=== PATIENT | female | born 1940 | race Caucasian/White ===

== ENCOUNTER 2023-04-16 15:45 | Emergency (ER) | payer MEDICARE, SELFPAY ==
--- NOTE | ~2023-04-16 | XR_ITS ---
XR chest 2V DATE: 04/16/2023 16:33 INDICATION: Wheezing and productive cough for a long time. Past smoker. TECHNIQUE: 2 views COMPARISON: 10/03/2015 2 view chest FINDINGS: Bilateral hyperinflation. No pulmonary infiltrate or consolidation, pleural effusion or pul monary vascular congestion or pneumothorax is detected. Normal heart size. No hilar or mediastinal enlargement. Diffuse osteopenia. IMPRESSION: Bilateral hyperinflation; no active cardiopulmonary disease Reviewed, dictated and finalized at location B. [employer] MA[employer]GER
[2023-04-16 16:01] VITALS: BP 103/69; PULSE 96; RESP 16; TEMP 36.6; O2SAT 99
--- NOTE | 2023-04-16 16:09 | ED.WOUNDLAC ---
HPI - Wound/Laceration General Chief Complaint: Wound/Laceration Stated Complaint: dog scratch Source: patient, RN notes reviewed and old records reviewed Mode of arrival: ambulatory Limitations: no limitations History of Present Illness HPI narrative: 82-year-old female presents to [facility] with complaints of scratches to right arm from her grandson's [place] [employer] that occurred today. Patient states was worried because area bled quite a bit after injury. Patient states also needs to have her tetanus updated. Patient also complaining of cough for the last several days that is now productive with yellow sputum and wheezing that started this a.m.. Patient states does have a history of asthma and has been having trouble getting her Flovent inhaler due to insurance. patient states does not currently have an albuterol inhaler Related Data Home Medications Medication Instructions Recorded Confirmed calcium carbonate 600 mg calcium 600 mg PO DAILY 08/27/22 04/16/23 (1,500 mg) tablet (Calcium) cholecalciferol (vitamin D3) 25 25 mcg PO DAILY 08/27/22 04/16/23 mcg (1,000 unit) capsule fluticasone propionate 110 1 puff inhalation Q12H 08/27/22 04/16/23 mcg/actuation HFA aerosol inhaler (Flovent HFA) lisinopril 2.5 mg tablet 2.5 mg PO DAILY 08/27/22 04/16/23 mv-mn-folic 200 mcg-vit K 15 1 cap PO DAILY 08/27/22 04/16/23 mcg-lutein 5 mg-zeaxanthin 1 mg capsule (PreserVision AREDS 2 Plus Multivit) rosuvastatin 5 mg tablet 5 mg PO DAILY 08/27/22 04/16/23 sertraline 100 mg tablet 100 mg PO DAILY 08/27/22 04/16/23 clonazepam 0.5 mg tablet See Rx Instructions .Route .COMPLEX 04/16/23 04/16/23 Allergies Allergy/AdvReac Type Severity Reaction Status Date / Time Sulfa (Sulfonamide Allergy Mild KIDNEY Verified 04/16/23 15:59 Antibiotics) PROBLEM amoxicillin Allergy Unknown Unknown Verified 04/16/23 15:59 clavulanic acid Allergy Unknown Unknown Verified 04/16/23 15:59 clindamycin AdvReac Unknown DECREASED Verified 04/16/23 15:59 APPETITE Review of Systems Constitutional: Constitutional: Reports no additional constitutional complaints, Denies body ache(s), Denies chills, Denies fatigue, Denies fever(s) and Denies headache(s) Eyes: Eyes: Reports no additional eye complaints and Denies blurry vision ENT: Reports system reviewed and no additional complaints, except as documented, Denies vertigo, Denies dizziness, Denies ear discharge, Denies otalgia, Denies facial pain, Denies headache(s), Denies nasal congestion, Denies nasal discharge, Denies sinus pain, Denies sinus pressure and Denies sore throat Cardiovascular: Cardiovascular: Reports no additional cardiovascular complaints, Denies chest pain, Denies chest pain at rest, Denies rapid heart rate and Denies dyspnea Respiratory: Respiratory: Reports no additional respiratory complaints, Reports chest congestion, Reports cough, Reports excessive phlegm production, Denies pain on inspiration, Denies pain with cough, Denies dyspnea and Reports wheezing Gastrointestinal: Gastrointestinal: Denies abdominal pain, Denies diarrhea, Denies nausea and Denies vomiting Integumentary/Breasts: Skin/Breast: Denies rash Neurologic: Reports system reviewed and no additional complaints, except as documented, Denies vertigo, Denies dizziness and Denies headache(s) Endocrine: Endocrine: Denies fatigue PMFSH Family History Family History Father Hypertension Cerebrovascular accident Mother Carcinoma of colon Hypertension Sibling Asthma Cancer Hypertension Depression Heart disease Other Asthma Hypertension Social History Social History Smoking status: Never smoker Alcohol intake: never Lack of Transportation: No Lack of Food: Never True Current Housing: I Have Housing Concerned About Future Housing: No Difficulty Paying Gas/Electric Bill
[2023-04-16] MEDS: ALBUTEROL SULFATE NEB 2.5 MG/3 ML INH INHALATION (16:37)
[2023-04-16] MEDS: TETANUS,DIPHTHERIA,AC PERTUSSIS ADULT (0.5 ML) BOOSTRIX IM (16:40)
== END 2023-04-16 17:19 | disposition home or self-care (01) ==
PROVIDERS: Emergency Provider Registered Nurse; PCP Internal Medicine
DX: S51.811A Laceration without foreign body of right forearm, initial encounter (principal); W54.8XXA Other contact with dog, initial encounter; J45.40 Moderate persistent asthma, uncomplicated; Z23 Encounter for immunization; E78.00 Pure hypercholesterolemia, unspecified; I10 Essential (primary) hypertension; M19.90 Unspecified osteoarthritis, unspecified site; F41.9 Anxiety disorder, unspecified; F32.A Depression, unspecified
CPT/HCPCS: 71046; 90471; 90715; 94640; 99213; G0463

== ENCOUNTER 2023-12-15 12:51 | Emergency (ER) | payer MEDICARE, SELFPAY ==
[2023-12-15 13:03] VITALS: BP 157/90; PULSE 80; RESP 16; TEMP 37.2; O2SAT 98
--- NOTE | 2023-12-15 13:41 | ED.WOUNDLAC ---
HPI - Wound/Laceration General Chief Complaint: Wound/Laceration Stated Complaint: right forearm injury/ cut Time Seen by Provider: 12/15/23 13:40 Source: patient and RN notes reviewed Mode of arrival: ambulatory Limitations: no limitations History of Present Illness HPI narrative: 83-year-old female presents with multiple concerns. She reports she sustained a skin tear this afternoon while she caught her arm on ache he. She reports she had trouble getting it to stop bleeding. His since stopped bleeding. In a separate complaint she reports 3 week history of sinus congestion, pressure, drainage. She reports she recently got a flu shot Related Data Home Medications Medication Instructions Recorded Confirmed calcium carbonate (Calcium 600) 600 mg PO DAILY 08/27/22 12/15/23 cholecalciferol (vitamin D3) 25 25 mcg PO DAILY 08/27/22 12/15/23 mcg (1,000 unit) capsule fluticasone propionate 110 1 puff inhalation Q12H 08/27/22 12/15/23 mcg/actuation HFA aerosol inhaler (Flovent HFA) lisinopril 2.5 mg tablet 2.5 mg PO DAILY 08/27/22 12/15/23 mv-mn-folic 200 mcg-vit K 15 1 cap PO DAILY 08/27/22 12/15/23 mcg-lutein 5 mg-zeaxanthin 1 mg capsule (PreserVision AREDS 2 Plus Multivit) rosuvastatin 5 mg tablet 5 mg PO DAILY 08/27/22 12/15/23 sertraline 100 mg tablet 100 mg PO DAILY 08/27/22 12/15/23 clonazepam 0.5 mg tablet See Rx Instructions .Route .COMPLEX 04/16/23 12/15/23 Allergies Allergy/AdvReac Type Severity Reaction Status Date / Time Sulfa (Sulfonamide Allergy Mild KIDNEY Verified 12/15/23 12:59 Antibiotics) PROBLEM amoxicillin Allergy Unknown Unknown Verified 12/15/23 12:59 clavulanic acid Allergy Unknown Unknown Verified 12/15/23 12:59 clindamycin AdvReac Unknown DECREASED Verified 12/15/23 12:59 APPETITE Review of Systems Review of Systems: CONSTITUTIONAL: Denies malaise, chills, sweats, or fever. ENT: Reports rhinorrhea, congestion, sinus pain, otalgia and sore throat. CARDIOVASCULAR: Denies chest pain, palpitations, or edema. RESPIRATORY: Denies cough. Denies dyspnea. SKIN: Reports skin tear to her right forearm MUSCULOSKELETAL: Denies muscle skeletal pain NEUROLOGIC: Denies numbness, weakness All systems reviewed & are unremarkable except as noted in HPI and below PMFSH Family History Family History Father Hypertension Cerebrovascular accident Mother Carcinoma of colon Hypertension Sibling Asthma Cancer Hypertension Depression Heart disease Other Asthma Hypertension Social History Social History Smoking status: Never smoker Alcohol intake: never Lack of Transportation: No Lack of Food: Never True Current Housing: I Have Housing Concerned About Future Housing: No Difficulty Paying Gas/Electric Bills: YES Difficulty Paying for Meds: No Currently Unemployed: No Education: High School Diploma/GED Difficulty w/ Childcare or Family Care: No Comments At time of signature, agree with nursing past medical, surgical, social and family history. There is no relevant family history pertinent to the presenting complaint Exam Narrative: GENERAL: Well-appearing, well-nourished, and in no acute distress. HEAD: Normocephalic EYES: PERRLA, conjunctivae clear ENT: Nares clear, turbinates edematous and erythematous. Mucous membranes moist. TM pearly barrios with dull light reflex bilaterally; no tragal tenderness. Oropharynx erythematous without lesions. Tonsils enlarged and without exudate, no drooling, no hoarseness, no trismus, uvula midline. NECK: Supple. No lymphadenopathy CHEST: Clear to auscultation, breath sounds equal. No wheezing, rhonchi, rales, or stridor. No respiratory distress, speaks in full sentences. HEART: Regular rate and rhythm. No murmur heard. SKIN: Warm, dry. Approximately 1.5 cm skin tear noted to the right forearm w
== END 2023-12-15 14:00 | disposition home or self-care (01) ==
PROVIDERS: Emergency Provider Nurse Practitioner; PCP Internal Medicine
DX: S51.811A Laceration without foreign body of right forearm, initial encounter (principal); J01.90 Acute sinusitis, unspecified; B96.89 Other specified bacterial agents as the cause of diseases classified elsewhere; W45.8XXA Other foreign body or object entering through skin, initial encounter
CPT/HCPCS: 99213; G0463

== ENCOUNTER 2024-05-24 10:36 | Emergency (ER) | payer MEDICARE, SELFPAY ==
--- NOTE | ~2024-05-24 | XR_ITS ---
XR tibia fibula LT 2V Ordering provider: Lurdes Aguila APRN History: . injury pain left mid to distal lower tib/fib . Comparison: None. FINDINGS: BONES: No acute fracture or dislocation. JOINT SPACES: Normal. SOFT TISSUES: Soft tissue densities in the subcutaneous tissues suggestive of varicose veins. Calcaneal spur. Ossification of the insertion of the tendo Achilles. IMPRESSION: No acute osseous abnormality left leg. Reviewed, dictated and finalized at location A.
[2024-05-24 10:43] VITALS: BP 161/86; PULSE 88; RESP 16; TEMP 37.4; O2SAT 96
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
== END 2024-05-24 11:50 | disposition home or self-care (01) ==
PROVIDERS: Emergency Provider Nurse Practitioner Family; PCP Internal Medicine
DX: M79.605 Pain in left leg (principal); F03.90 Unspecified dementia, unspecified severity, without behavioral disturbance, psychotic disturbance, mood disturbance, and anxiety; I10 Essential (primary) hypertension; E78.00 Pure hypercholesterolemia, unspecified; J45.909 Unspecified asthma, uncomplicated; K21.9 Gastro-esophageal reflux disease without esophagitis; M19.90 Unspecified osteoarthritis, unspecified site; F41.9 Anxiety disorder, unspecified; F32.A Depression, unspecified; Z96.642 Presence of left artificial hip joint
CPT/HCPCS: 73590; 99213; G0463